=== PATIENT | female | born 1970 | race Caucasian/White ===

== ENCOUNTER 2016-11-07 16:46 | Outpatient (CLI) | payer OTHER ==
[2016-11-07 17:30] LABS: eGFR (African) > 60; eGFR (Non-African) > 60
== END 2016-11-07 16:47 ==
LOC: LAB 16:46
PROVIDERS: ATTEND Family Medicine
DX: Z00.00 Encounter for general adult medical examination without abnormal findings (principal); Z13.29 Encounter for screening for other suspected endocrine disorder
CPT/HCPCS: 36415; 80053; 80061; 84443

== ENCOUNTER 2016-12-05 16:02 | Outpatient (CLI) | payer OTHER | END 2016-12-05 16:03 | LOC: LABRHC 16:02 | PROVIDERS: ATTEND Family Medicine | DX: Z12.4 Encounter for screening for malignant neoplasm of cervix (principal) | CPT/HCPCS: 88148; G0143 ==

== ENCOUNTER 2017-10-03 09:34 | Outpatient (CLI) | payer OTHER ==
--- NOTE | 2017-10-03 16:26 | Diagnostic Imaging Report ---
JAVAN ELIZALDE [facility] [address] [facility].[address] [id number] Report Submission Date: Oct 03, 2017 10:30:13 AM CDT Patient Study Name: SOPHIE CASTILLO Date: Oct 03, 2017 9:47:30 AM CDT Modality Type: DX Gender: F Description: SPINE : 70 Institution: [facility] Physician: JAVAN ELIZALDE Examination: Cervical spine History: NECK PAIN X 21 DAYS (Hx) Comparison exams: None available Findings: 4 views of the cervical spine demonstrate normal height and alignment. No anterior compression. No abnormal listhesis. Minimal degenerative spurring. No odontoid abnormality. No prevertebral abnormality Impression: No acute osseous abnormality Electronically signed on Oct 03, 2017 10:30:13 AM CDT by: Ayaz WALKER
== END 2017-10-03 09:36 ==
LOC: RAD 09:34
PROVIDERS: ATTEND Physician Assistant
DX: M54.2 Cervicalgia (principal)
CPT/HCPCS: 72040

== ENCOUNTER 2019-04-21 08:59 | Outpatient (CLI) | payer OTHER ==
--- NOTE | 2019-04-21 15:40 | Diagnostic Imaging Report ---
PATIENT MR#: [id number] PATIENT PATIENT NAME: SOPHIE CASTILLO DATE OF : 1970 REFERRING PHYSICIAN: Ana Oliveros EXAM DATE: 04/21/2019 ACCESSION NUMBER: [id number] EXAM DESCRIPTION: LT HIP 2VIEW COMPLETE Indication: Left hip pain for 3 months. Technique: Two views of the left hip were obtained. Comparison: None available. Findings: There is no fracture, dislocation, or suspicious osseous lesions of the left hip. There are no osseous erosive changes of the left hip. There may be minimal joint space narrowing of the left hip. The left sacroil iac joint is normal in appearance. There are no radiopaque foreign bodies. Impression: Minimal joint space narrowing suspected of the left hip with no fracture or dislocation. Read by: Dr. Rodriguez Naqvi Transcribed by: Rodriguez Naqvi Transcribed Date: 04/21/2019 3:39:37 PM Electronically signed by: Dr. Rodriguez Naqvi Date signed: 04/21/2019 3:39:37 PM
== END 2019-04-21 09:10 ==
LOC: RAD 08:59
PROVIDERS: ATTEND Family Medicine
DX: M25.552 Pain in left hip (principal)